=== PATIENT | female | born 1990 | race Caucasian/White ===

== ENCOUNTER 2017-12-27 13:38 | Emergency (ER) | payer OTHER ==
[2017-12-27 15:54] LABS: URINE PH (Dip) POC 7.5 (5.0-8.5)
[2017-12-27 15:54] LABS: URINE BLOOD (Dip) POC Negative (NEGATIVE); URINE GLUCOSE (Dip) POC Negative (NEGATIVE); URINE KETONES (Dip) POC Negative (NEGATIVE); URINE LEUKOCYTE EST (Dip) POC Negative (NEGATIVE); URINE NITRITE (Dip) POC Negative (NEGATIVE); URINE TOTAL PROTEIN POC Negative (NEGATIVE)
== END 2017-12-27 16:40 | disposition home or self-care (01) ==
LOC: FTE 13:38
DX: S40.011A Contusion of right shoulder, initial encounter (principal); V49.40XA Driver injured in collision with unspecified motor vehicles in traffic accident, initial encounter
CPT/HCPCS: 72040; 73010; 73030-RT; 81003; 81025; 99284-25

== ENCOUNTER 2018-02-25 03:03 | Emergency (ER) | payer OTHER | END 2018-02-25 04:38 | disposition home or self-care (01) | LOC: FTE 03:03 | DX: J20.9 Acute bronchitis, unspecified (principal) | CPT/HCPCS: 99284; Z7502 ==

== ENCOUNTER 2018-03-18 07:16 | Emergency (ER) | payer OTHER ==
[2018-03-18] MEDS: ACETAMINOPHEN 500 MG TAB PO (08:09)
== END 2018-03-18 09:03 | disposition home or self-care (01) ==
LOC: FTE 07:16
DX: J02.9 Acute pharyngitis, unspecified (principal)
CPT/HCPCS: 87880; 99283

== ENCOUNTER 2018-08-15 19:49 | Emergency (ER) | payer SELFPAY, OTHER | END 2018-08-15 20:50 | disposition left against medical advice (07) | LOC: FTE 20:50 | DX: Z53.21 Procedure and treatment not carried out due to patient leaving prior to being seen by health care provider (principal) ==

== ENCOUNTER 2018-08-16 12:32 | Emergency (ER) | payer OTHER | END 2018-08-16 14:40 | disposition home or self-care (01) | LOC: FTE 12:32 | DX: H92.02 Otalgia, left ear (principal) | CPT/HCPCS: 99283 ==

== ENCOUNTER 2019-02-17 15:02 | Emergency (ER) | payer OTHER | END 2019-02-17 18:01 | disposition home or self-care (01) | LOC: E/R 15:02 | DX: N64.4 Mastodynia (principal) | CPT/HCPCS: 76642; 93005; 99284-25 ==